=== PATIENT | female | born 1965 | race Caucasian/White ===

== ENCOUNTER 2016-10-25 16:27 | Observation (INO) | payer OTHER ==
[2016-10-25] VITALS (16 sets, daily range): BP systolic 120–152; RESP 16–22; TEMP 97.6–99.1; Ht 172.7 cm; Wt 95.3 kg
[~2016-10-25] VITALS: Ht 172.7 cm; Wt 95.3 kg
[~2016-10-25 16:27] MED LIST: BUPIVACA/EPI 0.25% PF 30ML NERVEBLOCK ONE; FENTANYL 100 MCG/2 ML AMP IV ONE; GLYCOPYRROLATE 0.2 MG/ML VIAL IV ONE; NEOSTIGMINE 10 MG/10 ML VIAL IV ONE; PROPOFOL 20 ML PER ML IV ONE; ROCURONIUM 50 MG VIAL IV ONE; SUCCINYLCHOLINE 20 MG/ML VL IV ONE
[2016-10-25] MEDS ORDERED: GLYCOPYRROLATE 0.2 MG/ML VIAL IV ONE (17:00)
[2016-10-25] MEDS ORDERED: DEXAMETHASONE 4 MG/ML VIAL IV ONE (17:00)
[2016-10-25] MEDS ORDERED: ONDANSETRON 4 MG VIAL IV ONE (17:00)
[2016-10-25] MEDS ORDERED: LACT RINGERS 1,000 ML IV SCH (17:00)
[2016-10-25] MEDS ORDERED: LIDOCAINE 1% BUFFERED 1 ML SYR INTRADERM PRN (17:00)
[2016-10-25] MEDS ORDERED: MIDAZOLAM 2 MG/2 ML INJ IV ONE (17:00)
[2016-10-25] MEDS ORDERED: SCOPOLAMINE PATCH TRANSDERM ONE (17:00)
[2016-10-25] MEDS ORDERED: MORPHINE 4 MG/ML SYR IV PRN (18:05)
[2016-10-25] MEDS ORDERED: DILAUDID 1 MG/ML AMP IV PRN ×2 (18:05→19:05)
[2016-10-25] MEDS ORDERED: MEPERIDINE 25 MG/ML IV PRN (18:05)
[2016-10-25] MEDS ORDERED: OXYCODONE 5 MG TAB PO PRN (18:05)
[2016-10-25] MEDS ORDERED: MORPHINE 2 MG/ML SYR IV PRN (18:05)
[2016-10-25] MEDS ORDERED: ONDANSETRON 4 MG VIAL IV PRN ×2 (18:05→19:05)
[2016-10-25] MEDS ORDERED: PROMETHAZINE 25 MG/ML VIAL IV PRN (19:05)
[2016-10-25] MEDS ORDERED: SALINE FLUSH 10 ML FLUSH PRN (19:05)
[2016-10-25] MEDS ORDERED: D5-1/2-NS W/KCL 20MEQ/L 1,000 ML IV SCH (19:05)
[2016-10-25] MEDS: SALINE FLUSH 10 ML FLUSH SCH (20:00)
[2016-10-25] MEDS: FAMOTIDINE 20 MG INJ IV SCH (21:51)
[2016-10-25] MEDS: OXYCODONE 5 MG TAB PO PRN (22:02)
[2016-10-26] MEDS: OXYCODONE 5 MG TAB PO PRN ×2 (01:43→11:45)
[2016-10-26] MEDS: CEFOXITIN 2,000 MG in SODIUM CHLORIDE 0.9% 100 ML IV SCH ×2 (01:44→10:26)
[2016-10-26 03:16] VITALS: BP_SYST 121; RESP 16; TEMP 98.2
[2016-10-26] MEDS ORDERED: SODIUM CHLORIDE 0.9% FLUSH BAG 500 ML IV SCH (06:00)
[2016-10-26 07:32] VITALS: BP_SYST 116; RESP 16; TEMP 97.2
[2016-10-26] MEDS: SALINE FLUSH 10 ML FLUSH SCH (08:15)
[2016-10-26] MEDS: FAMOTIDINE 20 MG INJ IV SCH (08:15)
[2016-10-26 11:34] VITALS: BP_SYST 116; RESP 16; TEMP 97.2
[2016-10-26] MEDS ORDERED: REMOVE TRANSDERMAL PATCH TOPICAL ONE (17:00)
[2016-10-28] MEDS ORDERED: REMOVE SCOPALAMINE PATCH XX ONE (17:00)
== END 2016-10-26 09:05 | disposition home or self-care (01) ==
LOC: SURG 16:27 → SDS 19:03 → 5THW 19:55
PROVIDERS: ADMIT Surgery; ATTEND Surgery
CPT/HCPCS: 80048; 85025; 88304; 94799